=== PATIENT | male | born 1965 | race African-American/Black ===

== ENCOUNTER → 2017-02-14 | Outpatient (CLI) | payer OTHER ==
[~2017-02-14] VITALS: Ht 182.9 cm; Wt 106.6 kg
[~2017-02-14] MED LIST: ATOR1TAB19 PO; FLON1SPR; LISI10TA4 PO; NS 1,000 ML IV SCH; PRIL20CA9 PO; PROPOFOL 200 MG/20 ML VIAL As Ordered ONE; TRAM50TA2 PO; XARE20TA PO
--- NOTE | 2017-02-14 10:56 | ROOR ---
Patient Name: Juan Cobian Procedure Date: 02/14/2017 10:33 AM Date of : 1965 Age: 51 Room: [facility] Gender: Male Note Status: Finalized Procedure: Colonoscopy Indications: Screening for colorectal malignant neoplasm Providers: Luis Carlos Centeno Jr, MD Referring MD: SCOTT ZHENG MD Requesting Provider: Medicines: Propofol per Anesthesia Complications: No immediate complications. Procedure: Pre-Anesthesia Assessment: - Prior to the procedure, a History and Physical was performed, and patient medications and allergies were reviewed. The patient is competent. The risks and benefits of the procedure and the sedation options and risks were discussed with the patient. All questions were answered and informed consent was obtained. Patient identification and proposed procedure were verified by the physician and the nurse in the pre-procedure area and in the procedure room. Mental Status Examination: alert and oriented. Airway Examination: normal oropharyngeal airway and neck mobility. Respiratory Examination: clear to auscultation. CV Examination: normal. ASA Grade Assessment: II - A patient with mild systemic disease. After reviewing the risks and benefits, the patient was deemed in satisfactory condition to undergo the procedure. The anesthesia plan was to use moderate sedation / analgesia (conscious sedation). Immediately prior to administration of medications, the patient was re-assessed for adequacy to receive sedatives. The heart rate, respiratory rate, oxygen saturations, blood pressure, adequacy of pulmonary ventilation, and response to care were monitored throughout the procedure. The physical status of the patient was re-assessed after the procedure. The Colonoscope was introduced through the anus and advanced to the cecum, identified by appendiceal orifice and ileocecal valve. The colonoscopy was performed without difficulty. The patient tolerated the procedure well. The quality of the bowel preparation was fair. Findings: The perianal and digital rectal examinations were normal. Pertinent negatives include normal sphincter tone, no palpable rectal lesions and no anal lesion or abnormality was detected. The rectum, sigmoid colon, descending colon, transverse colon, ascending colon, cecum, appendiceal orifice and ileocecal valve appeared normal. A small polyp was found in the recto-sigmoid colon. The polyp was removed with a jumbo cold forceps. Resection and retrieval were complete. Impression: - Preparation of the colon was fair. - The rectum, sigmoid colon, descending colon, transverse colon, ascending colon, cecum, appendiceal orifice and ileocecal valve are normal. - One small polyp at the recto-sigmoid colon, removed with a jumbo cold forceps. Resected and retrieved. Recommendation: - Repeat colonoscopy in 5-10 years for surveillance based on pathology results. Luis Carlos Centeno MD Luis Carlos Centeno Jr, MD 02/14/2017 10:55:45 AM This report has been signed electronically. Number of Addenda: 0 Note Initiated On: 02/14/2017 10:33 AM Estimated Blood Loss: Estimated blood loss: none.
[2017-02-14 11:25] VITALS: BP 158/89
== END ==
LOC: M OPP 09:22
PROVIDERS: ATTEND Surgery
DX: Z12.11 Encounter for screening for malignant neoplasm of colon (principal); D12.7 Benign neoplasm of rectosigmoid junction; I10 Essential (primary) hypertension; E11.9 Type 2 diabetes mellitus without complications; E78.00 Pure hypercholesterolemia, unspecified; F41.9 Anxiety disorder, unspecified; F32.9 Major depressive disorder, single episode, unspecified; M25.569 Pain in unspecified knee; F43.10 Post-traumatic stress disorder, unspecified; G47.30 Sleep apnea, unspecified; R06.83 Snoring; Z79.899 Other long term (current) drug therapy